=== PATIENT | male | born 1950 | race Caucasian/White ===

== ENCOUNTER 2016-07-07 11:00 | Day surgery (SDC) | payer BC, MEDICARE ==
[~2016-07-07] VITALS: Ht 172 cm; Wt 81.8 kg
[2016-07-07] VITALS (468 sets, daily range): BP systolic 121–192; BP diastolic 52–82; PULSE 51–72; TEMP 97.7–98.6; O2SAT 92–97
[~2016-07-07 11:00] MED LIST: ADVIL200 MG PO; GLUCOSAMINE & C1 CA1 PO; NORCO 325 MG-7.1 TAB PO; PLAVIX 75MG TAB75 MG PO; PRINIVIL10 MG PO; ULTRAM 50MG TAB50 MG PO; ZYRTEC 10MG10 MG PO
[2016-07-07 11:49] LABS: HEMATOCRIT 41.6 % (42.0-52.0); HEMOGLOBIN 14.4 g/dl (13.5-18.0); MEAN CELL VOLUME 93 fl (80.0-100.0); MEAN CORPUSCULAR HEMOGLOBIN 32 pg (27.0-31.0); MEAN CORPUSCULAR HGB CONC 35 g/dl (33.0-37.0); MEAN PLATELET VOLUME 10.1 fl (7.4-10.4); PLATELET COUNT 287 K/mm3 (130-400); RED BLOOD COUNT 4.46 M/mm3 (4.20-5.60); REDCELL DISTRIBUTION WIDTH-CV 12.9 % (11.5-14.5); WHITE BLOOD COUNT 9.8 K/mm3 (4.8-10.8)
[2016-07-07] MEDS ORDERED: LIPITOR20 MG PO (11:49)
[2016-07-07] MEDS ORDERED: EFFEXOR XR75 MG/CAP PO (11:49)
[2016-07-07 11:50] LABS: CALCIUM 9.6 mg/dL (8.4-10.2); CREATININE, serum 0.75 mg/dL (0.66-1.25); POTASSIUM 4.5 mmol/L (3.4-5.0)
[2016-07-07] MEDS ORDERED: COREG 6.256.25 MG/TA PO (11:50)
[2016-07-07] MEDS ORDERED: TYLENOL 8 HR PO (11:50)
[2016-07-07 11:51] LABS: PROTHROMBIN TIME 10.8 SECONDS (9.7-12.8)
[2016-07-08] VITALS (597 sets, daily range): BP systolic 141–146; BP diastolic 57–62; PULSE 60–66; TEMP 97.6–98.2; O2SAT 92–97
[2016-07-08 06:39] LABS: MEAN CELL VOLUME 94 fl (80.0-100.0); MEAN CORPUSCULAR HGB CONC 34 g/dl (33.0-37.0); MEAN PLATELET VOLUME 10.1 fl (7.4-10.4); PLATELET COUNT 272 K/mm3 (130-400); RED BLOOD COUNT 3.83 M/mm3 (4.20-5.60); REDCELL DISTRIBUTION WIDTH-CV 13.2 % (11.5-14.5); WHITE BLOOD COUNT 12.1 K/mm3 (4.8-10.8)
[2016-07-08 06:51] LABS: HEMATOCRIT 36.1 % (42.0-52.0); HEMOGLOBIN 12.3 g/dl (13.5-18.0); MEAN CORPUSCULAR HEMOGLOBIN 32 pg (27.0-31.0)
[2016-07-08 07:00] LABS: CALCIUM 8.8 mg/dL (8.4-10.2); CREATININE, serum 0.8 mg/dL (0.66-1.25); POTASSIUM 3.9 mmol/L (3.4-5.0)
[2016-07-08] MEDS ORDERED: ASPIRIN 81M81 MG/TA2 (10:20)
== END 2016-07-08 11:11 | disposition home or self-care (01) ==
LOC: COL.CAR 11:00 → IMCU 16:00 → COL.CAR 07-08 11:11
PROVIDERS: Internal Medicine Cardiovascular Disease
DX: I25.10 Atherosclerotic heart disease of native coronary artery without angina pectoris (principal); R94.39 Abnormal result of other cardiovascular function study; E78.5 Hyperlipidemia, unspecified; I10 Essential (primary) hypertension; J44.9 Chronic obstructive pulmonary disease, unspecified; Z82.49 Family history of ischemic heart disease and other diseases of the circulatory system; Z87.891 Personal history of nicotine dependence
CPT/HCPCS: OP; C1725; C1769; C1874; C1887; C1894; C9600; J0583; J1644; J2250; J3010; Q9967

== ENCOUNTER → 2016-11-07 | Outpatient (CLI) | payer BC ==
[~2016-11-07] MED LIST changes: +ASPIRIN 81M81 MG/TA2; +COREG 6.256.25 MG/TA PO; +EFFEXOR XR75 MG/CAP PO; +LIPITOR20 MG PO; +TYLENOL 8 HR PO
== END ==
LOC: COL.RAD 08:38
DX: M51.16 Intervertebral disc disorders with radiculopathy, lumbar region (principal); M43.16 Spondylolisthesis, lumbar region; M48.07 Spinal stenosis, lumbosacral region; M46.96 Unspecified inflammatory spondylopathy, lumbar region

== ENCOUNTER 2018-09-23 09:20 | Inpatient (IN) | payer MEDICARE, OTHER ==
[2018-09-23] VITALS (12 sets, daily range): BP systolic 119–146; BP diastolic 36–87; PULSE 69–85; TEMP 97.5–98.7
[~2018-09-23] VITALS: Ht 170.2 cm; Wt 82.8 kg
[2018-09-23 10:12] LABS: BASO % 0.4 % (0.0-2.0); EOS # 0.1 (0.0-0.7); GRAN # 6.8 (1.4-6.5); GRAN % 75.2 % (42.2-75.2); LYMPH # 1.2 (1.2-3.4); LYMPH % 13.6 % (20.0-51.0); MEAN CELL VOLUME 96 fl (80.0-100.0); MEAN CORPUSCULAR HGB CONC 34 g/dl (33.0-37.0); MEAN PLATELET VOLUME 10.4 fl (7.4-10.4); MONO # 0.8 (0.1-0.6); MONO % 9.1 % (1.7-9.3); PLATELET COUNT 209 K/mm3 (130-400); RED BLOOD COUNT 2.56 M/mm3 (4.20-5.60); REDCELL DISTRIBUTION WIDTH-CV 13.2 % (11.5-14.5)
[2018-09-23 10:27] LABS: BILIRUBIN,TOTAL 0.4 mg/dL (0.0-1.0); C-REACTIVE PROTEIN 0.8 mg/dL (0.0-0.9); CALCIUM 9.6 mg/dL (8.4-10.2); CREATININE, serum 1.17 (0.66-1.25); TOTAL PROTEIN 6.8 gm/dL (6.4-8.2)
[2018-09-23 10:29] LABS: HEMATOCRIT 24.5 % (42.0-52.0); HEMOGLOBIN 8.4 g/dl (13.5-18.0); MEAN CORPUSCULAR HEMOGLOBIN 33 pg (27.0-31.0)
[2018-09-23 10:36] LABS: TROPONIN-I 0.028 ng/mL (0.000-0.035)
--- NOTE | 2018-09-23 13:00 | NUR ---
Assessment completed, alert/oriented, vital signs stable, denies significant pain or discomfort/ stated some mild epigastric tenderness, Abd soft, BS+, reported black tary stools at home / hgbn 8.4 and hospiatlist has ordered serial check sto monitor closely, dneies feeling dizzy or lighthead, does report over last couple of days he tires easily and feels dizzy and SOA with activity, lungs CTA/ no resp.difficulty, heart RRR, distal pulses are palpable, GI consulted, EGD ordered and consent signed, present, plan of care discussed and questions answered
--- NOTE | 2018-09-23 15:47 | NUR ---
Patient arrived back to room 315 from endoscopy at this time, he is alert/oriented, vital signs stable, denies pain or discomfort, present in the room
[2018-09-23 17:44] LABS: HEMATOCRIT 20.5 % (42.0-52.0); HEMOGLOBIN 6.9 g/dl (13.5-18.0)
--- NOTE | 2018-09-23 22:23 | NUR ---
ONE UNIT BLOOD INFUSING PER PROTOCOL AT THIS TIME. INFUSION INITIATED @ 2211 @ 120ML/HR. LUNG SOUNDS CTA THROUGHOUT. HEART RATE REGULAR. DENIES C/O CHEST PAIN OR SOA. SYPTOMS TO REPORT FOR TRANSFUSION REACTION REVIEWED WITH PATIENT. VERBALIZES UNDERSTANDING. SIGNED CONSENT ON CHART. PATIENT HAS NO QUESTIONS OR CONCERNS AT BEGINNING OF TRANSFUSION.
--- NOTE | 2018-09-23 23:21 | NUR ---
BLOOD INFUSING AT 180ML/HR THROUGH RIGHT SC 20 G IV. SEE FLOW SHEET FOR FVS OBTAINED. PATIENT DENIES C/O CHEST PAIN, SOA, FLANK PAIN. NO QUESTIONS OR CONCERNS AT THIS TIME.
[2018-09-24] VITALS (12 sets, daily range): BP systolic 127–153; BP diastolic 39–64; PULSE 63–82; TEMP 98.1–98.7
[2018-09-24 04:44] LABS: HEMATOCRIT 21.1 % (42.0-52.0); HEMOGLOBIN 7.2 g/dl (13.5-18.0)
[2018-09-24 04:53] LABS: CALCIUM 8.3 mg/dL (8.4-10.2); CHOLESTEROL RISK RATIO 3.6; CREATININE, serum 0.85 (0.66-1.25); POTASSIUM 4.1 mmol/L (3.4-5.0)
--- NOTE | 2018-09-24 06:12 | NUR ---
BLOOD TRANSFUSION OF 1 UNIT RBC TRANSFUSED PER PROTOCOL. CONSENT ON CHART. DISCUSSED TRANSFUSION REACTION SYMPTOMS WITH PATIENT, ACKNOWLEDGES UNDERSTANDING. DENIES QUESTIONS OR CONCERNS BEFORE TRANSFUSION STARTED.
--- NOTE | 2018-09-24 07:05 | NUR ---
resting in bed, blood infusing at 160ml/hr, bedside shift report received from ANGIE Quinn
--- NOTE | 2018-09-24 08:00 | NUR ---
blood transfusion completed and patient tolerated well without s/s of reaction, full assessment completed, see interventions for further info, up to bathroom independently and voids qs
--- NOTE | 2018-09-24 09:34 | NUR ---
JOELLE met with the patient to discuss a discharge plan. The pt lives in [place] with his , Claire. The pt does not use DME and reports independence with ADLs. The pt's PCP is Dr. Mata and receive medications via mail and at [facility] with no difficulties. The pt does not have advanced directives in the EMR and was not interested in a DPOA-HC form. The pt plans to return home upon discharge with Claire providing transportation. There are no additional needs at this time.
--- NOTE | 2018-09-24 10:44 | NUR ---
Dr Powell and care team in to see patient
--- NOTE | 2018-09-24 10:50 | NUR ---
Dr Powell and care team in to see patient, he is resting in bed and disappointed that he wouldn't be able to go home today, denies needs
--- NOTE | 2018-09-24 12:45 | NUR ---
resting in bed, had clear liquids and tolerated well, denies needs
[2018-09-24 13:15] LABS: HEMATOCRIT 23.7 % (42.0-52.0)
--- NOTE | 2018-09-24 14:00 | NUR ---
resting in bed visiting with his , informed of his Hgb and that he would not need another unit of blood today
--- NOTE | 2018-09-24 16:31 | NUR ---
resting in bed, ready for a shower, IV fluids to INT while up and in shower
--- NOTE | 2018-09-24 17:46 | NUR ---
visiting with family, assisted with ordering supper
--- NOTE | 2018-09-24 18:19 | NUR ---
sitting up in bed eating supper and tolerates well,
--- NOTE | 2018-09-24 18:49 | NUR ---
bedside shift report given to ANGIE Quinn
[2018-09-24 21:10] LABS: HEMATOCRIT 25.6 % (42.0-52.0); HEMOGLOBIN 8.7 g/dl (13.5-18.0)
[2018-09-25 04:01] VITALS: BP 143/50; PULSE 68; TEMP 98.5
[2018-09-25 07:31] VITALS: BP 154/66; PULSE 74; TEMP 98.4
[2018-09-25 08:23] LABS: CALCIUM 8.4 mg/dL (8.4-10.2); CREATININE, serum 0.76 (0.66-1.25); POTASSIUM 3.7 mmol/L (3.4-5.0)
[2018-09-25 08:34] LABS: HEMOGLOBIN 8.1 g/dl (13.5-18.0)
[2018-09-25] MEDS ORDERED: PROTONIX 40MG T40 MG PO (09:05)
[2018-09-25] MEDS ORDERED: FERROUS SU325 MG/TAB PO (09:09)
--- NOTE | 2018-09-25 09:35 | NUR ---
Pt alert and oriented and stable this am. Pt IV patent. Pt am assessment completed and pt states he is ready to go home. Pt denies pain SOB or dizziness. Pt has call light in reach.
--- NOTE | 2018-09-25 10:51 | NUR ---
SW attended clinical rounding. Patient is tolerating soft diet and will be dc home today with no unmet discharge needs.
--- NOTE | 2018-09-25 12:17 | NUR ---
First visit from the metal work duct installer. No needs right now.
--- NOTE | 2018-09-25 12:20 | NUR ---
Pt alert and oriented. Pt given discharge instructions and IV discontinued. Pt has follow up appts scheduled or will be scheduled by pt. Pt discharge medication reviewed. Pt has all belongings and escorted out by aide without incident. Pt denies questions.
== END 2018-09-25 12:20 | disposition home or self-care (01) | DRG 378 ==
LOC: COL.ER 09:20 → MEDICAL 10:53
PROVIDERS: Internal Medicine Gastroenterology; Physician Assistant; ADMIT Family Medicine
PROC: 0W3P8ZZ Control Bleeding in Gastrointestinal Tract, Via Natural or Artificial Opening Endoscopic (ICD-10-PCS; 2018-09-23)
PROC: 30233N1 Transfusion of Nonautologous Red Blood Cells into Peripheral Vein, Percutaneous Approach (ICD-10-PCS; principal; 2018-09-23 14:30)
DX: K25.4 Chronic or unspecified gastric ulcer with hemorrhage (principal); D62 Acute posthemorrhagic anemia; I10 Essential (primary) hypertension; R93.1 Abnormal findings on diagnostic imaging of heart and coronary circulation; I25.10 Atherosclerotic heart disease of native coronary artery without angina pectoris; I73.9 Peripheral vascular disease, unspecified; Z95.5 Presence of coronary angioplasty implant and graft; Z79.82 Long term (current) use of aspirin; Z79.02 Long term (current) use of antithrombotics/antiplatelets; Z87.891 Personal history of nicotine dependence; Z90.49 Acquired absence of other specified parts of digestive tract; Z98.62 Peripheral vascular angioplasty status
CPT/HCPCS: 99222-AI; 99239; C9113; J2250; J3010; J7030; P9016

== ENCOUNTER 2018-10-16 13:02 | Day surgery (SDC) | payer MEDICARE, OTHER ==
[~2018-10-16] VITALS: Ht 170.2 cm; Wt 86.9 kg
[~2018-10-16 13:02] MED LIST changes: +FERROUS SU325 MG/TAB PO; +PROTONIX 40MG T40 MG PO
[2018-10-16 13:38] VITALS: BP 169/64; PULSE 53; TEMP 97.6
[2018-10-16] MEDS ORDERED: ZYLOPRIM 100MG100 MG PO (13:52)
[2018-10-16] MEDS ORDERED: ASPIRIN 81M81 MG/TA2 PO (13:53)
[2018-10-16] MEDS ORDERED: PLAVIX 75MG TAB75 MG PO (13:54)
[2018-10-16] MEDS ORDERED: MOBIC 7.5MG7.5 MG PO (13:54)
[2018-10-16 14:43] VITALS: BP 130/46; PULSE 55; TEMP 97
[2018-10-16 15:00] VITALS: BP 123/48; PULSE 45
[2018-10-16 15:15] VITALS: BP 138/55; PULSE 51
[2018-10-16 15:30] VITALS: BP 130/47; PULSE 45
[2018-10-16 16:42] VITALS: BP 131/55; PULSE 45
== END 2018-10-16 15:45 | disposition home or self-care (01) ==
LOC: SDCO 13:02
DX: D50.0 Iron deficiency anemia secondary to blood loss (chronic) (principal); K92.1 Melena; K25.4 Chronic or unspecified gastric ulcer with hemorrhage; Z79.02 Long term (current) use of antithrombotics/antiplatelets
CPT/HCPCS: J2250; J3010; J7030

== ENCOUNTER 2019-06-03 15:43 | Inpatient (IN) | payer MEDICARE, OTHER ==
[~2019-06-03] VITALS: Ht 172.7 cm; Wt 87.2 kg
[~2019-06-03 15:43] MED LIST changes: +ASPIRIN 81M81 MG/TA2 PO; +MOBIC 7.5MG7.5 MG PO; +ZYLOPRIM 100MG100 MG PO
[2019-06-03 16:46] LABS: BASO # 0.1 (0.0-0.2); BASO % 0.8 % (0.0-2.0); EOS # 0.3 (0.0-0.7); EOS % 3.6 % (0-4.0); GRAN # 5.4 (1.4-6.5); GRAN % 62.7 % (42.2-75.2); HEMATOCRIT 38.7 % (42.0-52.0); HEMOGLOBIN 12.9 g/dl (13.5-18.0); LYMPH # 1.4 (1.2-3.4); LYMPH % 16.4 % (20.0-51.0); MEAN CELL VOLUME 94 fl (80.0-100.0); MEAN CORPUSCULAR HEMOGLOBIN 32 pg (27.0-31.0); MEAN CORPUSCULAR HGB CONC 33 g/dl (33.0-37.0); MEAN PLATELET VOLUME 10.9 fl (7.4-10.4); MONO # 1.4 (0.1-0.6); MONO % 16.3 % (1.7-9.3); PLATELET COUNT 200 K/mm3 (130-400); REDCELL DISTRIBUTION WIDTH-CV 12.9 % (11.5-14.5)
[2019-06-03 16:53] LABS: PROTHROMBIN TIME 11.4 SECONDS (9.7-12.8)
[2019-06-03 16:56] LABS: PARTIAL THROMBOPLASTIN TIME 29.3 SECONDS (26.0-37.0)
[2019-06-03 17:11] LABS: COLLECTION METHOD CLEAN CATCH
[2019-06-03 17:12] LABS: ALBUMIN 4.2 gm/dL (3.5-5.0); BILIRUBIN,TOTAL 0.5 mg/dL (0.0-1.0); C-REACTIVE PROTEIN 1.1 mg/dL (0.0-0.9); CALCIUM 9.6 mg/dL (8.4-10.2); CREATININE, serum 1.07 (0.66-1.25); POTASSIUM 3.9 mmol/L (3.4-5.0); TOTAL PROTEIN 7.1 gm/dL (6.4-8.2)
[2019-06-03] MEDS ORDERED: LIPITOR 40MG TA40 MG PO (17:15)
[2019-06-03] MEDS ORDERED: ANIMAL SHAPES +1 CTB PO (17:15)
[2019-06-03] MEDS ORDERED: DIOVAN 80MG80 MG PO (17:17)
[2019-06-03 17:18] LABS: MUCOUS Present /lpf; PH 5 (5-8); SQUAMOUS EPITHELIAL None Seen /hpf; URINE APPEARANCE Clear; URINE BACTERIA None Seen /hpf; URINE BILIRUBIN Negative (NEGATIVE); URINE BLOOD Negative (NEGATIVE); URINE COLOR Yellow; URINE GLUCOSE Negative (NEGATIVE); URINE KETONE Negative (NEGATIVE); URINE LEUKOCYTE ESTERASE Negative (NEGATIVE); URINE NITRATE Negative (NEGATIVE); URINE PROTEIN(semi-quant) Negative (NEGATIVE); URINE RBC 0-2 /hpf; URINE UROBILINOGEN Negative (NEGATIVE)
[2019-06-03 17:32] LABS: TROPONIN-I 0.081 ng/mL (0.000-0.035)
--- NOTE | 2019-06-03 20:30 | NUR ---
Patient to room 317 with ED RN Chey[place]. Patient oriented to room and settled in bed. Admission B complete. Patient is alert and oriented, no increased work of breathing, lung sounds clear, heart sounds regular with murmur, no edema or pain.
[2019-06-03] MEDS ORDERED: EFFEXOR XR75 MG/CAP PO (22:27)
[2019-06-03 23:32] VITALS: BP 135/58; PULSE 57; TEMP 98
[2019-06-04] VITALS (16 sets, daily range): BP systolic 139–183; BP diastolic 42–71; PULSE 51–76; TEMP 97.6–98.5
--- NOTE | 2019-06-04 06:09 | NUR ---
Patient has had a restful night. When he was awoken for morning medications, he complained of a headache and Tylenol was administered. Troponin was still elevated at 0330 at 0.081 and a redraw was completed at 0500. Results currently pending. DMITRIY Granger was notified of these results. No further concerns. Will continue to monitor.
[2019-06-04 06:52] LABS: BASO % 0.4 % (0.0-2.0); EOS # 0.2 (0.0-0.7); EOS % 2.7 % (0-4.0); GRAN # 6.4 (1.4-6.5); GRAN % 71.7 % (42.2-75.2); HEMOGLOBIN 11.7 g/dl (13.5-18.0); LYMPH # 1.1 (1.2-3.4); LYMPH % 12.5 % (20.0-51.0); MEAN CELL VOLUME 96 fl (80.0-100.0); MEAN CORPUSCULAR HEMOGLOBIN 32 pg (27.0-31.0); MEAN CORPUSCULAR HGB CONC 34 g/dl (33.0-37.0); MEAN PLATELET VOLUME 10.8 fl (7.4-10.4); MONO # 1.1 (0.1-0.6); MONO % 12.5 % (1.7-9.3); PLATELET COUNT 176 K/mm3 (130-400); RED BLOOD COUNT 3.61 M/mm3 (4.20-5.60)
[2019-06-04 07:01] LABS: CALCIUM 8.8 mg/dL (8.4-10.2); CREATININE, serum 0.83 (0.66-1.25); POTASSIUM 3.7 mmol/L (3.4-5.0)
[2019-06-04 07:13] LABS: HEMATOCRIT 34.8 % (42.0-52.0)
[2019-06-04 07:16] LABS: TROPONIN-I 0.073 ng/mL (0.000-0.035)
--- NOTE | 2019-06-04 10:46 | NUR ---
Assessment complete. Patient resting in bed. Alert and oriented. Denied pain or discomfort at this time. States he feel good but is hungry. he is aware of his POC and why he is NPO. IV site CD&I, flushed well. No other needs were expressed at this time. Call light is in reach.
--- NOTE | 2019-06-04 11:08 | NUR ---
First visit from the computer project manager. No needs right now.
--- NOTE | 2019-06-04 11:41 | NUR ---
SEE MERGE DOCUMENTATION FOR MEDICATION ADMINISTRATION AND INTRA/POST PROCEDURE SEDATION ASSESSMENTS.
--- NOTE | 2019-06-04 14:15 | NUR ---
Pt arrived back to floor. Alert and orienteed. Denies pain at this time. Puncture site CD&I. TR dressing still in tact. Told to remove by 1500. Pt tolerated water well, gag reflex in tact. Will get a tray for pt to eat. No other needs. Call light in reach
--- NOTE | 2019-06-04 14:48 | NUR ---
Portfolio Analyst contacted patient to discuss discharge planning. Patient lives in [place] with his Claire (ph#[phone]) and sees Dr. Snider for primary care. Patient has medications mailed to him by a company he cannot remember but reports if he needs medications quickly he utilizes [employer]. Patient does not use any DME and reports independence with ADLS. Patient cannot remember if he has DPOA in place. Patient plans to return home upon discharge with his providing transportation. SW to continue to follow as needed.
--- NOTE | 2019-06-04 18:11 | NUR ---
Pt has been stable since cath and AISHA this afternoon. No complaints of pain or discomfort. TR band deflated gradually and then removed per instruction by cath associate. Vitals have been stable. Pt states his diastolic normal runs between 50-70. IV site was leaking after he went to the bathroom, cleaned up with new dressing. Pt is aware of his POC at this time. No other needs were expressed at this time. Call light in place.
--- NOTE | 2019-06-04 20:30 | NUR ---
Initial shift assessment done- states slight headache, requesting some Tylenol. Denies need for a HS snack. Right radial heart cath site clean/dry, no brusing/or hematoma-open to air.
--- NOTE | 2019-06-05 04:20 | NUR ---
Quiet night- VSS, right radial site looks good- no hematoma or bruising , no drainage- states headache is gone- has been sleeping well
[2019-06-05 04:35] VITALS: BP 145/43; PULSE 63; TEMP 98.5
[2019-06-05 06:08] LABS: BASO # 0.1 (0.0-0.2); BASO % 0.6 % (0.0-2.0); EOS # 0.5 (0.0-0.7); EOS % 5.7 % (0-4.0); GRAN # 5.1 (1.4-6.5); GRAN % 60.7 % (42.2-75.2); HEMATOCRIT 39.5 % (42.0-52.0); HEMOGLOBIN 12.9 g/dl (13.5-18.0); LYMPH # 1.5 (1.2-3.4); MEAN CELL VOLUME 95 fl (80.0-100.0); MEAN CORPUSCULAR HEMOGLOBIN 31 pg (27.0-31.0); MEAN CORPUSCULAR HGB CONC 33 g/dl (33.0-37.0); MONO # 1.2 (0.1-0.6); MONO % 14.8 % (1.7-9.3); PLATELET COUNT 184 K/mm3 (130-400); RED BLOOD COUNT 4.14 M/mm3 (4.20-5.60); REDCELL DISTRIBUTION WIDTH-CV 12.9 % (11.5-14.5)
[2019-06-05 06:18] LABS: CALCIUM 9.2 mg/dL (8.4-10.2); CREATININE, serum 0.96 (0.66-1.25); POTASSIUM 3.9 mmol/L (3.4-5.0)
[2019-06-05 08:39] VITALS: BP 126/53; PULSE 65; TEMP 98.5
[2019-06-05 11:38] VITALS: BP 138/60; PULSE 57; TEMP 98.2
[2019-06-05] MEDS ORDERED: NORVASC 5MG5 MG/TAB PO (12:36)
[2019-06-05] MEDS ORDERED: COZAAR100 MG PO (12:37)
--- NOTE | 2019-06-05 18:25 | NUR ---
patient is alert and oriented, declined any pain. RT provide patient with Incentive Spirometer. patient was discharged with prescription for Losartan and amlodipine. Vasartan was stopped. INT was discontinued. patient was informed about future appointment. Patient discharged.
== END 2019-06-05 14:20 | disposition home or self-care (01) | DRG 281 ==
LOC: COL.ER 15:43 → MEDICAL 18:55
PROVIDERS: Emergency Medicine; Nurse Practitioner Family; Physician Assistant; ADMIT Student in an Organized Health Care Education/Training Program
PROC: 4A023N7 Measurement of Cardiac Sampling and Pressure, Left Heart, Percutaneous Approach (ICD-10-PCS; principal; 2019-06-03)
PROC: B2111ZZ Fluoroscopy of Multiple Coronary Arteries using Low Osmolar Contrast (ICD-10-PCS; 2019-06-03)
DX: I35.2 Nonrheumatic aortic (valve) stenosis with insufficiency (principal); I21.A1 Myocardial infarction type 2; J98.11 Atelectasis; I16.0 Hypertensive urgency; K25.9 Gastric ulcer, unspecified as acute or chronic, without hemorrhage or perforation; E78.5 Hyperlipidemia, unspecified; Z66 Do not resuscitate; I25.10 Atherosclerotic heart disease of native coronary artery without angina pectoris; Z95.5 Presence of coronary angioplasty implant and graft; D64.9 Anemia, unspecified; I73.9 Peripheral vascular disease, unspecified; Z87.891 Personal history of nicotine dependence; I10 Essential (primary) hypertension
CPT/HCPCS: 99223-AI; 99232-AI; 99239; A4216; A9284; C1769; C9113; J0456; J0696; J1644; J1940; J2250; J2704; J3010; J7030; J7050; Q9967

== ENCOUNTER 2019-11-14 08:21 | Day surgery (SDC) | payer MEDICARE, OTHER ==
[~2019-11-14] VITALS: Ht 172.7 cm; Wt 87.8 kg
[2019-11-14] VITALS (7 sets, daily range): BP systolic 124–155; BP diastolic 48–87; PULSE 43–65; TEMP 97.2
[~2019-11-14 08:21] MED LIST changes: +ANIMAL SHAPES +1 CTB PO; +COZAAR100 MG PO; +DIOVAN 80MG80 MG PO; +LIPITOR 40MG TA40 MG PO; +NORVASC 5MG5 MG/TAB PO
--- NOTE | 2019-11-14 09:50 | NUR ---
Patient brought back to bay 3 via cart. Ambulated to chair without difficulty. Placed on monitors, vital signs stable. Patient denies nausea or pain. Rk RN at bedside for report. in waiting room. Patient requests sprite and muffin. Will continue to monitor.
--- NOTE | 2019-11-14 10:05 | NUR ---
Patient tolerating food and drink without difficulty. Denies discomfort. Awaiting to speak with Dr. Zelaya. Will continue to monitor.
--- NOTE | 2019-11-14 10:15 | NUR ---
PATIENT RESTING COMFORTABLY IN CHAIR. DENIES NAUSEA OR PAIN AFTER ORAL FLUIDS AND FOOD.
--- NOTE | 2019-11-14 10:45 | NUR ---
PATIENT CONTINUES TO DO WELL POST PROCEDURE. NO NAUSEA OR PAIN. DR AT BEDSIDE TO TALK WITH PATIENT. PATIENT READY TO GO HOME. ALERT AND FULLY AWAKE. DISMISSAL INSTRUCTIONS EXPLAINED AND REVIEWED. HARD COPIES GIVEN. DENIES QUESTIONS AND SIGNS IN ACKNOWLEDGMENT OF RECEIPT @ 1052. IV SITE WITHOUT REDNESS OR SWELLING. IV DISCONTINUED @ 1050.
--- NOTE | 2019-11-14 10:58 | NUR ---
PATIENT UP TO CHANGE CLOTHES TO HOME. STABLE ON FEET. AT BEDSIDE TO ASSIST. DISMISSED PER WHEELCHAIR OUT TO CAR AND HOME PER PRIVATE VEHICLE WITH @ 1111
== END 2019-11-14 11:11 | disposition home or self-care (01) ==
LOC: SDCO 08:21
DX: K92.1 Melena (principal); K29.30 Chronic superficial gastritis without bleeding; Z79.899 Other long term (current) drug therapy; Z87.891 Personal history of nicotine dependence; D64.9 Anemia, unspecified; Z87.11 Personal history of peptic ulcer disease; Z20.828 Contact with and (suspected) exposure to other viral communicable diseases
CPT/HCPCS: J2704

== ENCOUNTER → 2021-05-03 | Outpatient (CLI) | payer MEDICARE, OTHER | LOC: COL.RAD 11:05 | DX: I74.5 Embolism and thrombosis of iliac artery (principal); I70.211 Atherosclerosis of native arteries of extremities with intermittent claudication, right leg; M71.22 Synovial cyst of popliteal space [Baker], left knee; Z90.49 Acquired absence of other specified parts of digestive tract | CPT/HCPCS: Q9967 ==

== ENCOUNTER 2021-06-09 07:58 | Outpatient (CLI) | payer MEDICARE, OTHER ==
[~2021-06-09] VITALS: Ht 170.2 cm; Wt 96.6 kg
[~2021-06-09 07:58] MED LIST changes: +COREG 25MG25 MG/TAB PO; -COREG 6.256.25 MG/TA PO
[2021-06-09 08:53] VITALS: BP 180/65; PULSE 56
[2021-06-09 09:10] LABS: HEMATOCRIT 39.7 % (42.0-52.0); HEMOGLOBIN 13.8 g/dl (13.5-18.0); MEAN CELL VOLUME 92 fl (80.0-100.0); MEAN CORPUSCULAR HEMOGLOBIN 32 pg (27-31); MEAN CORPUSCULAR HGB CONC 35 g/dl (33.0-37.0); MEAN PLATELET VOLUME 10.2 fl (7.4-10.4); PLATELET COUNT 263 K/mm3 (130-400); RED BLOOD COUNT 4.34 M/mm3 (4.20-5.60); REDCELL DISTRIBUTION WIDTH-CV 13.2 % (11.5-14.5)
[2021-06-09 09:19] LABS: PROTHROMBIN TIME 11.3 SECONDS (9.7-12.8)
[2021-06-09] MEDS ORDERED: NORVASC 10MG10 MG PO (09:20)
[2021-06-09 09:22] LABS: CALCIUM 9.5 mg/dL (8.4-10.2); CREATININE, serum 0.93 mg/dL (0.72-1.25); POTASSIUM 4.6 mmol/L (3.5-4.5)
[2021-06-09 10:30] VITALS: BP 151/71; PULSE 56
--- NOTE | 2021-06-09 10:30 | NUR ---
REPORT RECEIVED FROM EVERETT ADAMS. PT RESTING COMFORTABLY AFTER AISHA, AT BS. PT IS PWD, RESP REG AND UNLABORED. PT AWARE OF POC, DISCHARGE IS PENDING. WE HAVE REVIEWED DC INSTRUCTIONS AND PT AND VERBALIZED UNDERSTANDING. CALL LIGHT IN REACH. ICE CHIPS/OJ PROVIDED. NO PROBLEMS SWALLOWING.
[2021-06-09 10:45] VITALS: BP 163/64; PULSE 55
[2021-06-09 11:00] VITALS: BP 181/73; PULSE 55
[2021-06-09 11:15] VITALS: BP 184/67; PULSE 65
--- NOTE | 2021-06-09 11:45 | NUR ---
PT is ready for discharge. Pt has done well during his recovery and is now up and ambulatory with steady gait. we reviewed discharge instructions again, and pt and verbalized understanding. IV is dc'd with cath intact, dressing applied. Pt escorted to exit via wheelchair.
== END 2021-06-09 12:00 | disposition home or self-care (01) ==
LOC: COL.RAD 07:58
PROVIDERS: Internal Medicine Cardiovascular Disease
DX: I08.1 Rheumatic disorders of both mitral and tricuspid valves (principal)
CPT/HCPCS: J2704

== ENCOUNTER 2021-07-24 09:22 | Emergency (ER) | payer MEDICARE, OTHER ==
[~2021-07-24] VITALS: Ht 172.7 cm; Wt 90.9 kg
[~2021-07-24 09:22] MED LIST changes: +NORVASC 10MG10 MG PO
[2021-07-24 09:31] VITALS: BP 169/59; TEMP 98.3
[2021-07-24] MEDS ORDERED: INDOCIN 25MG CA25 MG PO (09:47)
[2021-07-24 10:00] VITALS: PULSE 88
== END 2021-07-24 10:00 | disposition home or self-care (01) ==
LOC: COL.ER 09:22
DX: M10.9 Gout, unspecified (principal); Z98.62 Peripheral vascular angioplasty status
CPT/HCPCS: J1885

== ENCOUNTER 2021-11-03 03:56 | Emergency (ER) | payer MEDICARE, OTHER ==
[~2021-11-03] VITALS: Ht 170.2 cm; Wt 90.9 kg
[~2021-11-03 03:56] MED LIST changes: +INDOCIN 25MG CA25 MG PO
[2021-11-03 04:00] VITALS: TEMP 98.2
[2021-11-03] MEDS ORDERED: TYLENOL 500MG500 MG PO (06:01)
[2021-11-03] MEDS ORDERED: FLEXERIL5 MG PO (06:01)
[2021-11-03 06:20] VITALS: BP 140/69; PULSE 75
== END 2021-11-03 06:20 | disposition home or self-care (01) ==
LOC: COL.ER 03:56
DX: R51.9 Headache, unspecified (principal); M62.830 Muscle spasm of back; M62.838 Other muscle spasm; Z87.891 Personal history of nicotine dependence

== ENCOUNTER 2021-11-10 09:45 | Emergency (ER) | payer MEDICARE, OTHER ==
[~2021-11-10] VITALS: Ht 170.2 cm; Wt 90.9 kg
[~2021-11-10 09:45] MED LIST changes: +FLEXERIL5 MG PO; +TYLENOL 500MG500 MG PO
[2021-11-10 10:10] VITALS: TEMP 98
[2021-11-10 12:07] VITALS: BP 170/73; PULSE 62
== END 2021-11-10 12:09 | disposition home or self-care (01) ==
LOC: COL.ER 09:45
DX: R04.0 Epistaxis (principal); I48.91 Unspecified atrial fibrillation; Z79.01 Long term (current) use of anticoagulants

== ENCOUNTER → 2022-12-20 | Outpatient (CLI) | payer MEDICARE, OTHER ==
[~2022-12-20] VITALS: Ht 170.2 cm; Wt 95.3 kg
[2022-12-20] VITALS (11 sets, daily range): BP systolic 111–153; BP diastolic 73–89; PULSE 52–76; TEMP 97.4
[~2022-12-20] MED LIST changes: -ANIMAL SHAPES +1 CTB PO; +ONE-A-DAY ESSE1 EACH PO
[2022-12-20 12:02] LABS: HEMATOCRIT 44.4 % (42.0-52.0); HEMOGLOBIN 15.6 g/dl (13.5-18.0); MEAN CELL VOLUME 91 fl (80.0-100.0); MEAN CORPUSCULAR HEMOGLOBIN 32 pg (27-31); MEAN CORPUSCULAR HGB CONC 35 g/dl (33.0-37.0); MEAN PLATELET VOLUME 10.3 fl (7.4-10.4); PLATELET COUNT 214 K/mm3 (130-400); RED BLOOD COUNT 4.87 M/mm3 (4.20-5.60); REDCELL DISTRIBUTION WIDTH-CV 13.3 % (11.5-14.5)
--- NOTE | 2022-12-20 12:43 | NUR ---
Pt to ct per wheelchair, pt up onto ct table in prone position. Monitors applied and O2 on at 2l/nc.
--- NOTE | 2022-12-20 13:07 | NUR ---
Specimens obtained by Dr Rosenbaum and given to lab dilia.
[2022-12-22 09:00] LABS: BASO # 0.1 K/mm3 (0.0-0.2); EOS # 0.4 K/mm3 (0.0-0.7); EOS % 4.8 % (0.0-4.0); GRAN # 4.4 K/mm3 (1.4-6.5); GRAN % 60.2 % (42.2-75.2); LYMPH # 1.3 K/mm3 (1.2-3.4); LYMPH % 18.5 % (20.0-51.0); MONO # 1.1 K/mm3 (0.1-0.6); MONO % 15.1 % (1.7-9.3)
== END ==
LOC: COL.RAD 10:51
PROVIDERS: Internal Medicine
DX: D72.821 Monocytosis (symptomatic) (principal)
CPT/HCPCS: C1830; J3010